=== PATIENT | male | born 1980 | race African-American/Black ===

== ENCOUNTER 2017-04-16 03:37 | Emergency (ER) | payer MEDICAID ==
[2017-04-16] VITALS (11 sets, daily range): BP systolic 132–150; BP diastolic 80–103
[~2017-04-16] VITALS: Ht 188 cm; Wt 81.6 kg
[2017-04-16] MEDS ORDERED: UNOBMED (03:41)
[2017-04-16] MEDS ORDERED: Haloperidol 5mg/ml Inj ONE (03:47)
[2017-04-16] MEDS ORDERED: LORazepam Inj 2mg/ml 1ml ONE (03:47)
[2017-04-16] MEDS ORDERED: DiphenhydrAMINE 50mg/ml Inj ONE (03:48)
--- NOTE | 2017-04-16 03:54 | Emergency Room Report ---
History of Present Illness General Chief Complaint: Behavioral Complaint Source: Patient, EMS (AndreOneal) Present Illness HPI Patient is a 36-year-old male who presented after increased bizarre behavior. Patient had been brought in by EMS after being found at a drugstore. The patient was noted to have been somewhat agitated. History is markedly limited by patient's poor cooperation. (Oneal Powell) Allergies: Coded Allergies: No Known Allergies (Unverified , 04/16/17) Patient History Past Medical History: see triage record Reviewed Nursing Documentation: PMH: Agreed, PSxH: Agreed (Oneal Powell) Review of Systems All Other Systems: limited - by mental status (Oneal Powell) Physical Exam Vital Signs Date Time Temp Pulse Resp B/P (MAP) Pulse Ox O2 Delivery O2 Flow Rate FiO2 04/16/17 03:40 84 16 150/103 98 Room Air Sp02 EP Interpretation: reviewed, normal General Appearance: alert/responsive, no apparent distress, GCS 15, non-toxic Head: atraumatic Eyes: PERRL, lids + conjunctiva normal ENT: hearing intact, no angioedema Neck: supple/symm/no masses, no meningismus Respiratory: effort normal, no wheezing, chest symmetrical Cardiovascular: regular rate, rhythm, no edema Cardiovascular #2: 2+ carotid (R), 2+ carotid (L), 2+ dorsalis pedis (R), 2+ dorsalis pedis (L) Gastrointestinal: non-tender, no mass, non-distended, no rebound/guarding, normal bowel sounds Musculoskeletal: gait & station normal, strength & tone normal, normal ROM, non -tender Neurologic: normal inspection, CN II-XII intact, sensory intact Psychiatric: affect normal, other - bizarre speech, Skin: no rash, well hydrated Lymphatic: normal inspection (Oneal Powell) Medical Decision Making Diagnostic Impression: Primary Impression: Behavioral change Additional Impression: Substance abuse ER Course Patient presented for bizarre behavior. Differential diagnoses include substance abuse, psychosis, bipolar disorder, depression, malingering. Because of complexity of patient's case laboratory testing and imaging studies were ordered. The patient noted be somewhat agitated. Given IM Haldol as well as Benadryl and Ativan do to agitation. The patient was placed in restraints. Restraints were subsequently released after patient was more sedated. The patient endorsed to Dr. Perry pending reevaluation. Labs Test 04/16/17 04:00 White Blood Count 4.5 K/UL (4.8-10.8) Red Blood Count 4.34 M/UL (4.70-6.10) Hemoglobin 12.0 G/DL (14.2-18.0) Hematocrit 37.0 % (42.0-52.0) Mean Corpuscular Volume 85 FL (80-99) Mean Corpuscular Hemoglobin 27.7 PG (27.0-31.0) Mean Corpuscular Hemoglobin Concent 32.5 G/DL (32.0-36.0) Red Cell Distribution Width 14.8 % (11.6-14.8) Platelet Count 205 K/UL (150-450) Mean Platelet Volume 5.3 FL (6.5-10.1) Neutrophils (%) (Auto) 46.5 % (45.0-75.0) Lymphocytes (%) (Auto) 30.4 % (20.0-45.0) Monocytes (%) (Auto) 13.1 % (1.0-10.0) Eosinophils (%) (Auto) 9.1 % (0.0-3.0) Basophils (%) (Auto) 0.8 % (0.0-2.0) Sodium Level 140 MMOL/L (136-145) Potassium Level 3.7 MMOL/L (3.5-5.1) Chloride Level 105 MMOL/L (98-107) Carbon Dioxide Level 29 MMOL/L (21-32) Anion Gap 6 mmol/L (5-15) Blood Urea Nitrogen 23 mg/dL (7-18) Creatinine 1.0 MG/DL (0.55-1.30) Estimat Glomerular Filtration Rate > 60 mL/min (>60) Glucose Level 98 MG/DL (74-106) Calcium Level 7.8 MG/DL (8.5-10.1) Total Bilirubin 0.6 MG/DL (0.2-1.0) Aspartate Amino Transf (AST/SGOT) 63 U/L (15-37) Alanine Aminotransferase (ALT/SGPT) 18 U/L (12-78) Alkaline Phosphatase 110 U/L (46-116) Total Protein 7.4 G/DL (6.4-8.2) Albumin 3.5 G/DL (3.4-5.0) Globulin 3.9 g/dL Albumin/Globulin Ratio 0.9 (1.0-2.7) Salicylates Level 0.9 ug/mL (2.8-20) Urine Opiates Screen Negative (NEGATIVE) Acetaminophen Level < 2 MCG/ML (10-30) Urine Barbiturates Screen Negative (NEGATIVE) Phencyclidine (PCP) Screen Negative (NEGATIVE) Urine Amphetamines Screen Negative (NEGATIVE) Urine Benzodiazepines Screen Negative (NEGATIVE) Urine Cocaine Screen Negative (NEGATIVE) Urine Marijuana (THC) Screen Positive (NEGATIVE) Serum Alcohol < 3 mg/dL (Oneal Powell) ER Course patient signed out to me by Dr. Powell at 6:30 AM Urine tox positive marijuana Alcohol level within normal limits No other abnormalities on blood testing CT head negative for acute trauma or hemorrhage Patient got up at 11 AM, walked to the bathroom, walking on the ER Denies SI, HI, Avh yo M F with DDX: Plan: Obtain labs, ua, ucx, ucg, CXR, EKG ER course: Patient has remained stable during ED stay. Disposition: Patient is to be discharged to home. Patient is instructed to follow up with their primary care doctor within 5 days. Strict return precautions discussed with patient such as fever, chills, worsening/severe pain, nausea, vomiting, which may indicate severe illness. Patient verbalizes understanding and agrees with plan. Please note that this Emergency Department Report was dictated using [employer] software, occasionally this can lead to erroneous entry secondary to interpretation by the dictation equipment (DORENE PERRY M.D.) Last Vital Signs Date Time Temp Pulse Resp B/P (MAP) Pulse Ox O2 Delivery O2 Flow Rate FiO2 04/16/17 03:40 84 16 150/103 98 Room Air Status: improved (Oneal Powell) Status: improved (DORENE PERRY M.D.) Disposition: HOME, SELF-CARE Condition: Stable Oneal Powell Apr 16, 2017 03:54 DORENE PERRY M.D. Apr 16, 2017 11:25
[2017-04-16] MEDS ORDERED: LORazepam Inj 2mg/ml 1ml IM ONE (04:00)
[2017-04-16] MEDS ORDERED: Haloperidol 5mg/ml Inj IM ONE (04:00)
[2017-04-16] MEDS ORDERED: DiphenhydrAMINE 50mg/ml Inj IM ONE (04:00)
[2017-04-16 04:45] LABS: BASOPHILS % (AUTO) 0.8 % (0.0-2.0); EOSINOPHILS % (AUTO) 9.1 % (0.0-3.0); LYMPHOCYTES % (AUTO) 30.4 % (20.0-45.0); MEAN CORPUSCULAR VOLUME 85 FL (80-99); MONOCYTES % (AUTO) 13.1 % (1.0-10.0); NEUTROPHILS % (AUTO) 46.5 % (45.0-75.0); PLATELET COUNT 205 K/UL (150-450); RED BLOOD COUNT 4.34 M/UL (4.70-6.10); RED CELL DISTRIBUTION WIDTH 14.8 % (11.6-14.8); WHITE BLOOD COUNT 4.5 K/UL (4.8-10.8)
[2017-04-16 05:11] LABS: ANION GAP 6 mmol/L (5-15); BLOOD UREA NITROGEN 23 mg/dL (7-18); CALCIUM 7.8 MG/DL (8.5-10.1); CARBON DIOXIDE 29 MMOL/L (21-32); CHLORIDE 105 MMOL/L (98-107); POTASSIUM 3.7 MMOL/L (3.5-5.1); SODIUM 140 MMOL/L (136-145)
[2017-04-16 05:17] LABS: ALANINE AMINOTRANSFERASE 18 U/L (12-78); ALBUMIN 3.5 G/DL (3.4-5.0); ALBUMIN/GLOBULIN RATIO 0.9 (1.0-2.7); ALKALINE PHOSPHATASE 110 U/L (46-116); ASPARTATE AMINO TRANSFERASE 63 U/L (15-37); BILIRUBIN,TOTAL 0.6 MG/DL (0.2-1.0)
--- NOTE | 2017-04-16 08:35 | Diagnostic Imaging Report ---
Indications: Altered mental status Technique: Spiral acquisitions obtained through the brain. Angled axial and coronal 5 x 5 mm slices were reconstructed. Total dose length product 1540.77 mGycm. CTDI vol(s) 70.38 mGy. Dose reduction achieved using automated exposure control Comparison: None. Findings: There is some image degradation due to motion artifact. Apparent high attenuation adjacent to the tentorium on the right is presumably artifactual, appears more clearly artifactual on the coronal reconstructed images. Normal copeland-white differentiation. Normal-sized ventricles and extra-axial CSF spaces. Metallic foreign bodies are seen within the high parietal scalp just to the right of midline posterior to the vertex. There is fairly extensive sinus disease. The orbits are unremarkable. The calvarium is intact. Impression: Negative for acute intracranial bleed or mass effect Metallic foreign bodies within the high parietal scalp posterior to the vertex Fairly extensive sinus disease This agrees with the preliminary interpretation provided overnight by [facility]. The CT scanner at [facility] is accredited by the [employer] and the scans are performed using protocols designed to limit radiation exposure to as low as reasonably achievable to attain images of sufficient resolution adequate for diagnostic evaluation.
== END 2017-04-16 11:30 | disposition home or self-care (01) ==
LOC: EDBD 03:37 → EMR 03:56
DX: F12.10 Cannabis abuse, uncomplicated (principal); F91.9 Conduct disorder, unspecified
CPT/HCPCS: 36415; 70450; 80053; 80307; 80329; 85025; 96372; 99284; J1200; J1630